=== PATIENT | female | born 1965 | race American Indian/Alaskan Native ===

== ENCOUNTER 2021-05-29 10:39 | Outpatient (CLI) | payer OTHER ==
--- NOTE | 2021-05-29 11:50 | XRay Report ---
XR wrist 3+V RT INDICATION / CLINICAL INFORMATION: RIGHT WRIST PAIN. COMPARISON: None available. FINDINGS: BONES/JOINT(S): No acute fracture or subluxation. 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 Alignment is normal otherwise. SOFT TISSUES: No significant abnormality. ADDITIONAL FINDINGS: None. Signer Name: Bernardo Delgado MD Signed: 05/29/2021 11:45 AM Workstation Name: [id number]
--- NOTE | 2021-05-29 11:50 | XRay Report ---
XR hand 3+V RT INDICATION / CLINICAL INFORMATION: RIGHT HAND PAIN. COMPARISON: None available. FINDINGS: BONES/JOINT(S): No acute fracture or subluxation. 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 SOFT TISSUES: No significant abnormality. ADDITIONAL FINDINGS: None. Signer Name: Bernardo Delgado MD Signed: 05/29/2021 11:46 AM Workstation Name: [id number]
--- NOTE | 2021-05-29 11:56 | XRay Report ---
XR ankle 3+V LT INDICATION / CLINICAL INFORMATION: LEFT ANKLE PAIN. COMPARISON: None available. FINDINGS: BONES/JOINT(S): No acute fracture or subluxation. Previous screw fixation in the region of the talar neck. SOFT TISSUES: No significant abnormality. ADDITIONAL FINDINGS: None. Signer Name: Bernardo Delgado MD Signed: 05/29/2021 11:52 AM Workstation Name: [id number]
== END 2021-05-29 10:40 | disposition home or self-care (01) ==
LOC: XRAY 10:39
PROVIDERS: ATTEND Internal Medicine
DX: S82.90XA Unspecified fracture of unspecified lower leg, initial encounter for closed fracture (principal); M19.041 Primary osteoarthritis, right hand; M25.572 Pain in left ankle and joints of left foot; M25.531 Pain in right wrist; M79.641 Pain in right hand; X58.XXXA Exposure to other specified factors, initial encounter; Y93.89 Activity, other specified; Y92.89 Other specified places as the place of occurrence of the external cause; Y99.8 Other external cause status